=== PATIENT | male | born 1940 | race Caucasian/White ===

== ENCOUNTER 2020-02-12 16:01 | Inpatient (IN) ==
--- NOTE | 2020-02-12 16:24 | Emergency Department Note ---
SOB HPI General Chief Complaint: Shortness of Breath/Dyspnea Stated Complaint: shortness of breath Time Seen by Provider: 02/12/20 16:05 Source: patient Mode of arrival: wheelchair Limitations: no limitations History of Present Illness HPI Narrative: Narrative: This patient has a history of chronic renal failure though is not on dialysis. He has had a lot of trouble with fluid retention with started on Lasix and metolazone and lost 16 pounds with his potassium came down quite a bit. He then stopped the metolazone is gained another 6 pounds back. He actually went to [facility] ER yesterday and they wanted to admit him but he refused. I have spoken with Dr. Patrick who recommended he come to the ER here and consider admission. He has had no chest pain. No cough. He does feel slightly short of breath. Does wear compression stockings. Related Data Home Medications Medication Instructions Recorded Confirmed atorvastatin 20 mg PO HS 09/30/18 01/24/20 magnesium oxide 400 mg PO QDAY 01/01/20 01/24/20 pantoprazole 40 mg tablet,delayed 40 mg PO QDAY 01/01/20 01/24/20 release hydralazine 25 mg tablet 25 mg PO BID tab 01/10/20 01/24/20 warfarin 3 mg tablet 3 mg PO .as directed tab 01/10/20 01/24/20 isosorbide dinitrate 5 mg tablet 10 mg PO BID tab 01/14/20 01/24/20 menthol 0.44 %-zinc oxide 20.6 % 1 applic TOPICAL ONCE PRN g 01/14/20 01/24/20 topical ointment Previous Rx's Medication Instructions Recorded albuterol sulfate 90 mcg/actuation 2 puff INHALATION Q6H PRN #6.7 g 01/24/20 aerosol inhaler metolazone 2.5 mg tablet 2.5 mg PO Q OTHER DAY #60 tab 01/24/20 furosemide 20 mg tablet 40 mg PO BID #120 tab 01/28/20 potassium chloride 10 mEq 10 meq PO QDAY #30 tab 02/04/20 tablet,extended release Allergies Allergy/AdvReac Type Severity Reaction Status Date / Time No Known Drug Allergies Allergy Verified 02/12/20 16:03 Review of Systems ROS ROS Narrative: Narrative: PFSH Narrative Patient History Narrative: Narrative: Medical/Surgical/Family History All Active Problems (Updated 02/12/20 @ 20:48 by Channing Shin MD) Congestive heart failure (Acute) Alkalosis (Acute) Hypokalemia (Acute) 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 (Acute) CKD (chronic kidney disease), stage IV (Acute) Volume overload (Acute) Anemia (Acute) CKD (chronic kidney disease), stage III (Chronic) Shock (Chronic) Diabetes mellitus, type II (Acute) Vitamin deficiency (Chronic) Hypokalemia (Chronic) Insomnia (Chronic) Nonrheumatic aortic (valve) stenosis (Chronic) Cardiac arrhythmia (Chronic) Urinary retention (Chronic) Arthritis (Chronic) History of hip surgery (Chronic) History of pacemaker (Chronic ~2018) Syncopal episodes (Chronic) AV block (Chronic) Chronic atrial fibrillation (Chronic) Hyperlipidemia (Chronic) Weakness (Chronic) Fatigue (Chronic) Chronic cardiac disorder (Chronic) Noncompliance with medication regimen (Chronic) S/P CABG x 1 (Chronic) H/O aortic valve replacement (Chronic ~2013) Leukocytosis (Chronic) Lactic acidosis (Chronic) Sepsis (Chronic) HTN (hypertension) (Chronic) Leg edema, right (Chronic) Chronic kidney disease (Chronic) Cellulitis (Chronic) Septic shock (Chronic) Acute renal failure (Chronic) Hyperkalemia (Chronic) Medical History (Updated 02/12/20 @ 20:48 by Channing Shin MD) Arthritis (Chronic) AV block (Chronic) Cardiac arrhythmia (Chronic) Chronic atrial fibrillation (Chronic) Chronic cardiac disorder (Chronic) Chronic kidney disease (Chronic) Stage 4 Diabetes mellitus, type II (Acute) Fatigue (Chronic) History of pacemaker (Chronic ~2017) HTN (hypertension) (Chronic) Hyperlipidemia (Chronic) Hypokalemia (Chronic) Insomnia (Chronic) Lactic acidosis (Chronic) Leg edema, right (Chronic) Leukocytosis (Chronic) Noncompliance with medication regimen (Chronic) Nonrheumatic aortic (valve) stenosis (Chronic) Sepsis (Chronic) Shock (Chronic) Syncopal episodes (Chronic) Urinary retention (Chronic) Vitamin deficiency (Chronic) Weakness (Chronic) Surgical History (Updated 01/01/20 @ 14:57 by Bailey Oconnor) H/O aortic valve replacement (Chronic ~2013) History of hip surgery (Chronic) Right S/P CABG x 1 (Chronic) Family History (Updated 01/01/20 @ 14:55 by Bailey Oconnor) Father Heart disease, congenital Grandmother Heart disease, congenital Social History Smoking Status: Former smoker Alcohol Intake Frequency: a few times a month Substance Use: does not use Exam Narrative Narrative: Narrative: General Limitations: no limitations Head Head: atraumatic, normocephalic and normal inspection Eye Eye: Present normal appearance ENT ENT: Present normal exam Chest Chest: Present normal inspection and symmetric chest wall rise Respiratory Respiratory: Present normal lung sounds bilaterally; Absent respiratory distress, rales/crackles and wheezes Cardiovascular Cardiovascular: Present regular rate, normal rhythm and systolic murmur Adbominal Abdominal: Present soft; Absent distention and tenderness Extremities Extremities: Present pedal edema and pretibial edema Neurological Neurological: Present alert Psychiatric Psychiatric: Present normal affect Skin Skin: Present warm and dry; Absent diaphoresis Course Vital Signs Vital signs: Vital Signs Temperature 97.3 F 02/12/20 16:01 Pulse Rate 79 02/12/20 16:01 Respiratory Rate 16 02/12/20 16:01 Blood Pressure 153/71 02/12/20 16:01 Pulse Oximetry (%) 96 02/12/20 16:01 Temperature 97.3 F 02/12/20 16:01 Pulse Rate 89 02/12/20 20:46 Respiratory Rate 16 02/12/20 20:46 Blood Pressure 144/67 02/12/20 20:46 Pulse Oximetry (%) 93 02/12/20 20:46 [facility] Narrative Medical decision making narrative: Narrative: Patient's chest x-ray shows heart failure his BNP is elevated troponin was s lightly elevated at 0.13 and 0.14 on repeat EKG shows left bundle branch block or ventricular paced complex. We did give him Lasix 40 mg IV and he began to have a good diuresis. I discussed this case with Dr. Kuhn and he will be admitted to the hospital. Lab Data Lab results reviewed: Yes I reviewed the patient's lab results. Result diagrams: 02/12/20 16:24 02/12/20 16:24 Labs: Lab Results 02/12/20 02/12/20 02/12/20 Range/Units 16:24 16:24 16:24 WBC 6.4 (4.50-11.00) K/mcL RBC 3.58 L (4.63-6.08) M/mcL Hgb 9.7 L (13.7-17.5) g/dL Hct 31.5 L (40.1-51.0) % MCV 88.0 (80.0-100.0) fL MCH 27.1 (26.0-34.0) pg MCHC 30.8 L (31.0-36.0) g/dL RDW 16.2 H (11.5-14.5) % Plt Count 266 (140-440) K/mcL MPV 10.2 (7.4-10.4) fL Gran % 74.8 (38.0-78.0) % Lymph % (Auto) 10.2 L (15.5-49.0) % [place] % (Auto) 11.4 (1.0-12.0) % Eos % (Auto) 2.5 (0.0-7.0) % Baso % (Auto) 1.1 (0.0-2.0) % Gran # 4.79 (1.80-8.00) K/mcL Lymph # (Auto) 0.65 L (1.50-4.80) K/mcL [place] # (Auto) 0.73 (0.10-0.90) K/mcL Eos # (Auto) 0.16 (0.00-0.70) K/mcL Baso # (Auto) 0.07 (0.00-0.30) K/mcL PT (11.9-14.5) sec INR (0.9-1.1) VBG Lactic Acid 2.0 (0.5-2.0) mmol/L Sodium 142 (133-145) mmol/L Potassium 4.2 (3.3-5.1) mmol/L Chloride 96 (96-108) mmol/L Carbon Dioxide 31 H (22-30) mmol/L Anion Gap 15.0 (8-16) BUN 45 H (8-23) mg/dl Creatinine 2.1 H (0.7-1.2) mg/dl GFR Calculation 29 Glucose 105 (70-105) mg/dL Calcium 8.7 (8.6-10.4) mg/dl Total Bilirubin 1.1 H (0.0-1.0) mg/dL AST 35 (0-37) U/l ALT 12 (0-40) U/l Alkaline Phosphatase 122 H (39-117) U/L Troponin T (0-0.03) ng/ml NT-Pro-B Natriuret Pep 7274.0 H (0-450) pg/ml Total Protein 6.7 (5.9-8.4) gm/dL Albumin 3.2 (3.2-5.2) gm/dL Globulin 3.5 (2.2-3.7) gm/dL Albumin/Globulin Ratio 0.9 L (1.0-2.3) Urine Color Urine Appearance Urine pH (5.0-9.0) Ur Specific [place] (1.000-1.035) Urine Protein (NEG) mg/dL Urine Glucose (UA) (NEG) mg/dL Urine Ketones (NEG) mg/dL Urine Occult Blood (<0.03) mg/dL Urine Nitrate (NEG) Urine Bilirubin (NEG) mg/dL Urine Urobilinogen (NEG) mg/dL Ur Leukocyte Esterase (NEG) /uL Urine RBC (0-1) /hpf Urine WBC (0-4) /hpf Ur Squamous Epith Cells (0-4) /hpf Urine Bacteria (0) /hpf Hyaline Casts (0-2) /lpf Urine Mucus (0) /hpf Ur Culture Indicated? 02/12/20 02/12/20 02/12/20 Range/Units 16:24 16:24 17:09 WBC (4.50-11.00) K/mcL RBC (4.63-6.08) M/mcL Hgb (13.7-17.5) g/dL Hct (40.1-51.0) % MCV (80.0-100.0) fL MCH (26.0-34.0) pg MCHC (31.0-36.0) g/dL RDW (11.5-14.5) % Plt Count (140-440) K/mcL MPV (7.4-10.4) fL Gran % (38.0-78.0) % Lymph % (Auto) (15.5-49.0) % [place] % (Auto) (1.0-12.0) % Eos % (Auto) (0.0-7.0) % Baso % (Auto) (0.0-2.0) % Gran # (1.80-8.00) K/mcL Lymph # (Auto) (1.50-4.80) K/mcL [place] # (Auto) (0.10-0.90) K/mcL Eos # (Auto) (0.00-0.70) K/mcL Baso # (Auto) (0.00-0.30) K/mcL PT 22.9 H (11.9-14.5) sec INR 2.0 H (0.9-1.1) VBG Lactic Acid (0.5-2.0) mmol/L Sodium (133-145) mmol/L Potassium (3.3-5.1) mmol/L Chloride (96-108) mmol/L Carbon Dioxide (22-30) mmol/L Anion Gap (8-16) BUN (8-23) mg/dl Creatinine (0.7-1.2) mg/dl GFR Calculation Glucose (70-105) mg/dL Calcium (8.6-10.4) mg/dl Total Bilirubin (0.0-1.0) mg/dL AST (0-37) U/l ALT (0-40) U/l Alkaline Phosphatase (39-117) U/L Troponin T 0.13 H* (0-0.03) ng/ml NT-Pro-B Natriuret Pep (0-450) pg/ml Total Protein (5.9-8.4) gm/dL Albumin (3.2-5.2) gm/dL Globulin (2.2-3.7) gm/dL Albumin/Globulin Ratio (1.0-2.3) Urine Color Straw Urine Appearance Clear Urine pH 5.0 (5.0-9.0) Ur Specific [place] 1.008 (1.000-1.035) Urine Protein Neg (NEG) mg/dL Urine Glucose (UA) Negative (NEG) mg/dL Urine Ketones Neg (NEG) mg/dL Urine Occult Blood Neg (<0.03) mg/dL Urine Nitrate Neg (NEG) Urine Bilirubin Neg (NEG) mg/dL Urine Urobilinogen Neg (NEG) mg/dL Ur Leukocyte Esterase Neg (NEG) /uL Urine RBC 0 (0-1) /hpf Urine WBC < 1 (0-4) /hpf Ur Squamous Epith Cells < 1 (0-4) /hpf Urine Bacteria 0 (0) /hpf Hyaline Casts 3 H (0-2) /lpf Urine Mucus Few (0) /hpf Ur Culture Indicated? No 02/12/20 Range/Units 18:44 WBC (4.50-11.00) K/mcL RBC (4.63-6.08) M/mcL Hgb (13.7-17.5) g/dL Hct (40.1-51.0) % MCV (80.0-100.0) fL MCH (26.0-34.0) pg MCHC (31.0-36.0) g/dL RDW (11.5-14.5) % Plt Count (140-440) K/mcL MPV (7.4-10.4) fL Gran % (38.0-78.0) % Lymph % (Auto) (15.5-49.0) % [place] % (Auto) (1.0-12.0) % Eos % (Auto) (0.0-7.0) % Baso % (Auto) (0.0-2.0) % Gran # (1.80-8.00) K/mcL Lymph # (Auto) (1.50-4.80) K/mcL [place] # (Auto) (0.10-0.90) K/mcL Eos # (Auto) (0.00-0.70) K/mcL Baso # (Auto) (0.00-0.30) K/mcL PT (11.9-14.5) sec INR (0.9-1.1) VBG Lactic Acid (0.5-2.0) mmol/L Sodium (133-145) mmol/L Potassium (3.3-5.1) mmol/L Chloride (96-108) mmol/L Carbon Dioxide (22-30) mmol/L Anion Gap (8-16) BUN (8-23) mg/dl Creatinine (0.7-1.2) mg/dl GFR Calculation Glucose (70-105) mg/dL Calcium (8.6-10.4) mg/dl Total Bilirubin (0.0-1.0) mg/dL AST (0-37) U/l ALT (0-40) U/l Alkaline Phosphatase (39-117) U/L Troponin T 0.14 H* (0-0.03) ng/ml NT-Pro-B Natriuret Pep (0-450) pg/ml Total Protein (5.9-8.4) gm/dL Albumin (3.2-5.2) gm/dL Globulin (2.2-3.7) gm/dL Albumin/Globulin Ratio (1.0-2.3) Urine Color Urine Appearance Urine pH (5.0-9.0) Ur Specific [place] (1.000-1.035) Urine Protein (NEG) mg/dL Urine Glucose (UA) (NEG) mg/dL Urine Ketones (NEG) mg/dL Urine Occult Blood (<0.03) mg/dL Urine Nitrate (NEG) Urine Bilirubin (NEG) mg/dL Urine Urobilinogen (NEG) mg/dL Ur Leukocyte Esterase (NEG) /uL Urine RBC (0-1) /hpf Urine WBC (0-4) /hpf Ur Squamous Epith Cells (0-4) /hpf Urine Bacteria (0) /hpf Hyaline Casts (0-2) /lpf Urine Mucus (0) /hpf Ur Culture Indicated? Radiology Data Radiology results reviewed: Yes I reviewed the patient's radiology results. EKG Data EKG #1: EKG attestation: Yes I reviewed and interpreted this EKG. and Yes There are no EKG findings of acute coronary syndrome EKG results narrative: Paced complexes Discharge Plan Patient/Caregiver Discharge Instructions Pt seen by VICE PRESIDENT MEDIA RELATIONS/PA only: No Clinical Impression: Congestive heart failure Patient Disposition: Xfer As Inpt ([facility]) Follow up with: Roel Jaramillo MD [Primary Care Provider] - Prescriptions: No Action Calmoseptine 0.44-20.6 % ointment 1 applic TOPICAL ONCE PRN (Reason: Skin Irritation) RF: 0 isosorbide dinitrate 5 mg tablet 10 mg PO BID RF: 0 furosemide 20 mg tablet 40 mg PO BID Qty: 120 RF: 3 potassium chloride 10 mEq tablet extended release 10 meq PO QDAY Qty: 30 RF: 0 magnesium oxide 400 mg magnesium capsule 200 mg PO QDAY RF: 0 pantoprazole 40 mg tablet,delayed release (DR/EC) 40 mg PO QDAY RF: 0 hydralazine 25 mg tablet 25 mg PO BID RF: 0 metolazone 2.5 mg tablet 2.5 mg PO Q OTHER DAY Qty: 60 RF: 1 albuterol sulfate 90 mcg/actuation HFA aerosol inhaler 2 puff INHALATION Q6H PRN (Reason: shortness of breath or wheezing) Qty: 6.7 RF: 0 atorvastatin 20 MG tablet 20 mg PO HS RF: 0 warfarin 3 mg tablet 3 mg PO .as directed RF: 0
--- NOTE | 2020-02-12 16:40 | XRay Report ---
CLINICAL INFORMATION: edema COMPARISON: 09/30/2018 FINDINGS: The heart is moderately enlarged. Mitral annular calcification appreciated. Mediastinum is normal. Upper lobe pulmonary vessels slightly distended but there is no definite edema. Minor bibasilar atelectasis noted. Small bilateral pleural effusions developed IMPRESSION: Borderline CHF Interpreted and Authenticated by: Ryan Rodriguez 02/12/20
[2020-02-12 17:18] LABS: Basophils # (Auto) 0.07 K/mcL (0.00-0.30); Basophils % (Auto) 1.1 % (0.0-2.0); Eosinophils # (Auto) 0.16 K/mcL (0.00-0.70); Eosinophils % (Auto) 2.5 % (0.0-7.0); Granulocytes % (Auto) 74.8 % (38.0-78.0); Hematocrit 31.5 % (40.1-51.0); Hemoglobin 9.7 g/dL (13.7-17.5); Lymphocytes # (Auto) 0.65 K/mcL (1.50-4.80); Lymphocytes % (Auto) 10.2 % (15.5-49.0); Mean Corpuscular HGB Conc 30.8 g/dL (31.0-36.0); Mean Platelet Volume 10.2 fL (7.4-10.4); Monocytes # (Auto) 0.73 K/mcL (0.10-0.90); Monocytes % (Auto) 11.4 % (1.0-12.0); Platelet Count 266 K/mcL (140-440); RBC 3.58 M/mcL (4.63-6.08); Red Cell Distribution Width 16.2 % (11.5-14.5); WBC 6.4 K/mcL (4.50-11.00)
[2020-02-12 17:40] LABS: ALT/SGPT 12 U/l (0-40); AST/SGOT 35 U/l (0-37); Albumin 3.2 gm/dL (3.2-5.2); Albumin/Globulin Ratio 0.9 (1.0-2.3); Alkaline Phosphatase 122 U/L (39-117); Bilirubin,Total 1.1 mg/dL (0.0-1.0); Blood Urea Nitrogen 45 mg/dl (8-23); Calcium 8.7 mg/dl (8.6-10.4); Carbon Dioxide 31 mmol/L (22-30); Chloride 96 mmol/L (96-108); Globulin 3.5 gm/dL (2.2-3.7); Glomerular Filtration Rate 29; Glucose 105 mg/dL (70-105); Prothrombin Time 22.9 sec (11.9-14.5)
[2020-02-12] MEDS ORDERED: FUROSEMIDE 40 MG/4 ML VIAL IV ONE (17:59)
[2020-02-12 18:34] LABS: Appearance,Urine CLEAR; Bacteria,Urine 0 /hpf (0); Bilirubin,Urine NEG (NEG); Color,Urine STRAW; Culture Indicated,Urine NO; Glucose,Urine (UA) NEGATIVE (NEG); Ketones,Urine NEG (NEG); Leukocyte Esterase,Urine NEG /uL (NEG); Mucus,Urine FEW /hpf (0); Nitrate,Urine NEG (NEG); Protein,Urine NEG (NEG); Specific Gravity,Urine 1.008 (1.000-1.035); Urine Blood NEG mg/dL (<0.03); Urine Hyaline Cast 3 /lpf (0-2); Urine RBC 0 /hpf (0-1); Urine Squamous Epithelial Cell < 1 /hpf (0-4); Urine WBC < 1 /hpf (0-4); Urobilinogen,Urine NEG (NEG)
--- NOTE | 2020-02-12 20:54 | Internal Med History&Physical ---
HPI History of Present Illness Patient information: Note initiated : 02/12/20 at 8:54 pm Service Date, if different from initiated Date: [] Patient: Rosalino Hytlon a 79 y/o M admitted on for shortness of breath. Chief Complaint: Shortness of breath History of present illness: Mr. Hylton is a 79 year old M with a history of CKD TAVR/CAD/CABG status post pacemaker and RV systolic dysfunction presents to the ER with worsening shortness of breath/generalized weight gain. Patient recently started on Lasix/metolazone combo with adequate response relatively lost 14 pounds. However due to electrolyte abnormalities with low potassium metolazone was discontinued and he subsequently gained additional 6 pound weight along with increasing fatigue lethargy unable to function along with orthopnea. He notices lower extremity swelling worsening. He presents to [place] ER with above symptoms. Following initial evaluation he was recommended admission at [facility]. He however refused admission and went home only to get worse. He was now directed by patient's chair and couch maker today to [facility] ER. Initial work-up was consistent with CHF/profound lymphedema. Patient was started on diuretics. Subsequently hospital service was consulted. At the time of evaluation patient is alert. He is able to talk in near full sentences but short of breath. He is currently not on oxygen. Endorses to history as above. Denies NSAID intake. Denies changes in medication other than discontinuation of metolazone. He denies high salt diet. Review of systems 10 point review system was performed and is negative except for ones cussed above [facility] Medical History (Updated 02/12/20 @ 20:48 by Channing Shin MD) Arthritis (Chronic) AV block (Chronic) Cardiac arrhythmia (Chronic) Chronic atrial fibrillation (Chronic) Chronic cardiac disorder (Chronic) Chronic kidney disease (Chronic) Stage 4 Diabetes mellitus, type II (Acute) Fatigue (Chronic) History of pacemaker (Chronic ~2018) HTN (hypertension) (Chronic) Hyperlipidemia (Chronic) Hypokalemia (Chronic) Insomnia (Chronic) Lactic acidosis (Chronic) Leg edema, right (Chronic) Leukocytosis (Chronic) Noncompliance with medication regimen (Chronic) Nonrheumatic aortic (valve) stenosis (Chronic) Sepsis (Chronic) Shock (Chronic) Syncopal episodes (Chronic) Urinary retention (Chronic) Vitamin deficiency (Chronic) Weakness (Chronic) Surgical History (Updated 01/01/20 @ 14:57 by Bailey Oconnor) H/O aortic valve replacement (Chronic ~2013) History of hip surgery (Chronic) Right S/P CABG x 1 (Chronic) Family History (Updated 01/01/20 @ 14:55 by Bailey Oconnor) Father Heart disease, congenital Grandmother Heart disease, congenital Social History household members: family marital status: single smoking status: Never smoker alcohol intake frequency: a few times a month substance use type: does not use MEDS/ALLERGIES Home Medications and Allergies Home Medications Medication Instructions Recorded Confirmed Type atorvastatin 20 mg PO HS 09/30/18 02/12/20 History magnesium oxide 200 mg PO QDAY 01/01/20 02/12/20 History pantoprazole 40 mg tablet,delayed 40 mg PO QDAY 01/01/20 02/12/20 History release hydralazine 25 mg tablet 25 mg PO BID tab 01/10/20 02/12/20 History warfarin 3 mg tablet 3 mg PO .as directed tab 01/10/20 02/12/20 History isosorbide dinitrate 5 mg tablet 10 mg PO BID tab 01/14/20 02/12/20 History menthol 0.44 %-zinc oxide 20.6 % 1 applic TOPICAL ONCE PRN g 01/14/20 02/12/20 History topical ointment albuterol sulfate 90 mcg/actuation 2 puff INHALATION Q6H PRN #6.7 g 01/24/20 02/12/20 Rx aerosol inhaler metolazone 2.5 mg tablet 2.5 mg PO Q OTHER DAY #60 tab 01/24/20 02/12/20 Rx furosemide 20 mg tablet 40 mg PO BID #120 tab 01/28/20 02/12/20 Rx potassium chloride 10 mEq 10 meq PO QDAY #30 tab 02/04/20 02/12/20 Rx tablet,extended release Allergies Allergy/AdvReac Type Severity Reaction Status Date / Time No Known Drug Allergies Allergy Verified 02/12/20 16:03 EXAM Constitutional Vitals: Temp Pulse Resp BP Pulse Ox 97.3 F 89 16 144/67 93 02/12/20 16:01 02/12/20 20:46 02/12/20 20:46 02/12/20 20:46 02/12/20 20:46 Anxious and minimally labored breathing Head normocephalic Oral cavity moist No ear nose discharge Eye movement symmetrical Neck supple no lymphadenopathy Midline sternotomy incision scar. Pacemaker/paced rhythm on telemetry. Nondistended nontender abdomen Lower extremity diffuse lymphedema from ankle up to mid thigh Skin no suspicious lesion Psych anxious but alert cooperative Neuro normal higher function DATA Data Completed and Pending Labs on day of discharge: Labs from last 24 hours 02/12/20 02/12/20 02/12/20 18:44 17:09 16:24 WBC RBC Hgb Hct MCV MCH MCHC RDW Plt Count MPV Gran % Lymph % (Auto) [place] % (Auto) Eos % (Auto) Baso % (Auto) Gran # Lymph # (Auto) [place] # (Auto) Eos # (Auto) Baso # (Auto) PT 22.9 H INR 2.0 H VBG Lactic Acid Sodium Potassium Chloride Carbon Dioxide Anion Gap BUN Creatinine GFR Calculation Glucose Calcium Total Bilirubin AST ALT Alkaline Phosphatase Troponin T 0.14 H* NT-Pro-B Natriuret Pep Total Protein Albumin Globulin Albumin/Globulin Ratio Urine Color Straw Urine Appearance Clear Urine pH 5.0 Ur Specific [place] 1.008 Urine Protein Neg Urine Glucose (UA) Negative Urine Ketones Neg Urine Occult Blood Neg Urine Nitrate Neg Urine Bilirubin Neg Urine Urobilinogen Neg Ur Leukocyte Esterase Neg Urine RBC 0 Urine WBC < 1 Ur Squamous Epith Cells < 1 Urine Bacteria 0 Hyaline Casts 3 H Urine Mucus Few Ur Culture Indicated? No 02/12/20 02/12/20 02/12/20 16:24 16:24 16:24 WBC RBC Hgb Hct MCV MCH MCHC RDW Plt Count MPV Gran % Lymph % (Auto) [place] % (Auto) Eos % (Auto) Baso % (Auto) Gran # Lymph # (Auto) [place] # (Auto) Eos # (Auto) Baso # (Auto) PT INR VBG Lactic Acid 2.0 Sodium 142 Potassium 4.2 Chloride 96 Carbon Dioxide 31 H Anion Gap 15.0 BUN 45 H Creatinine 2.1 H GFR Calculation 29 Glucose 105 Calcium 8.7 Total Bilirubin 1.1 H AST 35 ALT 12 Alkaline Phosphatase 122 H Troponin T 0.13 H* NT-Pro-B Natriuret Pep 7274.0 H Total Protein 6.7 Albumin 3.2 Globulin 3.5 Albumin/Globulin Ratio 0.9 L Urine Color Urine Appearance Urine pH Ur Specific [place] Urine Protein Urine Glucose (UA) Urine Ketones Urine Occult Blood Urine Nitrate Urine Bilirubin Urine Urobilinogen Ur Leukocyte Esterase Urine RBC Urine WBC Ur Squamous Epith Cells Urine Bacteria Hyaline Casts Urine Mucus Ur Culture Indicated? 02/12/20 16:24 WBC 6.4 RBC 3.58 L Hgb 9.7 L Hct 31.5 L MCV 88.0 MCH 27.1 MCHC 30.8 L RDW 16.2 H Plt Count 266 MPV 10.2 Gran % 74.8 Lymph % (Auto) 10.[address] [place] % (Auto) 11.4 Eos % (Auto) 2.5 Baso % (Auto) 1.1 Gran # 4.79 Lymph # (Auto) 0.[address] [place] # (Auto) 0.73 Eos # (Auto) 0.16 Baso # (Auto) 0.07 PT INR VBG Lactic Acid Sodium Potassium Chloride Carbon Dioxide Anion Gap BUN Creatinine GFR Calculation Glucose Calcium Total Bilirubin AST ALT Alkaline Phosphatase Troponin T NT-Pro-B Natriuret Pep Total Protein Albumin Globulin Albumin/Globulin Ratio Urine Color Urine Appearance Urine pH Ur Specific [place] Urine Protein Urine Glucose (UA) Urine Ketones Urine Occult Blood Urine Nitrate Urine Bilirubin Urine Urobilinogen Ur Leukocyte Esterase Urine RBC Urine WBC Ur Squamous Epith Cells Urine Bacteria Hyaline Casts Urine Mucus Ur Culture Indicated? A/P Narrative A/P Narrative: * Acute decompensated heart failure-diastolic dysfunction with preserved LVEF as of echo reviewed from November 27. Continue diuretics/electrolyte management * Runs of V. tach-started on amiodarone drip * History of CAD/CABG on pacemaker continue isosorbide/statin * History of COPD continue bronchodilators * GERD continue PPI * Atrial fibrillation-rate controlled, paced rhythm * History of TAVR, reviewed echo 11/27 * Right heart systolic function/pulmonary hypertension * History of CKD stage IIIb, creatinine 2.1, follows up with nephrology * Anticoagulation Coumadin. INR therapeutic. * Full code * Prophylaxis anticoagulated on Coumadin Plan * Inpatient admission * Amiodarone drip * Diuresis * Electrolyte management * PT OT nutrition support Time Spent With Patient Time: Total time spent is greater than 50% in coordination of care (as documented) at patient's floor/unit and/or counseling patient: Total time spent with greater than 50% in coordination of care (as documented) at patient's floor/unit and/or counseling patient:: Greater than 35 minutes
[2020-02-12] MEDS ORDERED: DOCUSATE SODIUM 100 MG CAPSULE PO SCH (21:56)
[2020-02-12] MEDS ORDERED: ACETAMINOPHEN 325 MG TABLET PO PRN ×2 (21:56→23:03)
[2020-02-12] MEDS ORDERED: ATORVASTATIN 20 MG TABLET PO SCH (21:56)
[2020-02-12] MEDS ORDERED: METOLAZONE 2.5 MG TABLET PO SCH ×2 (21:56→23:03)
[2020-02-12] MEDS ORDERED: hydrALAZINE 25 MG TABLET PO SCH (21:56)
[2020-02-12] MEDS ORDERED: ONDANSETRON 4 MG/2 ML VIAL IV PRN ×2 (21:56→23:03)
[2020-02-12] MEDS ORDERED: BUDESONIDE 0.5 MG/2 ML AMPUL.NEB NEB SCH (21:56)
[2020-02-12] MEDS ORDERED: WARFARIN 3 MG TABLET PO SCH ×2 (21:56→23:03)
[2020-02-12] MEDS ORDERED: guaiFENesin/CODEINE 10 ML UDC PO PRN ×2 (21:56→23:03)
[2020-02-12] MEDS ORDERED: MAGNESIUM SULFATE 2 GM/50 ML BAG IV PRN ×2 (21:56→23:03)
[2020-02-12] MEDS ORDERED: BISACODYL 10 MG SUPP.RECT PR PRN ×2 (21:56→23:03)
[2020-02-12] MEDS ORDERED: ACETAMINOPHEN 650 MG/65 ML BOTTLE IV PRN ×2 (21:56→23:03)
[2020-02-12] MEDS ORDERED: ALBUTEROL SULFATE 200 PUFF INHALER INH PRN ×2 (21:56→23:03)
[2020-02-12] MEDS ORDERED: ONDANSETRON 4 MG ODT TABLET SL PRN ×2 (21:56→23:03)
[2020-02-12] MEDS ORDERED: POTASSIUM CHLORIDE 20 MEQ PACKET PO PRN ×2 (21:56→23:03)
[2020-02-12] MEDS ORDERED: SENNOSIDES/DOCUSATE SODIUM 1 TAB TABLET PO SCH (21:56)
[2020-02-12] MEDS ORDERED: ISOSORBIDE DINITRATE 10 MG PO SCH (21:56)
[2020-02-12] MEDS ORDERED: POLYETHYLENE GLYCOL 3350 17 GM PACKET PO PRN ×2 (21:56→23:03)
[2020-02-12] MEDS ORDERED: MELATONIN 3 MG TABLET PO PRN ×2 (21:56→23:03)
[2020-02-12] MEDS ORDERED: MENTHOL/ZINC OXIDE OINT.TOP 113 GM TOPICAL PRN ×2 (21:56→23:03)
[2020-02-12] MEDS ORDERED: METOPROLOL TARTRATE 5 MG/5 ML VIAL IV PRN ×2 (21:56→23:03)
[2020-02-12] MEDS ORDERED: 0.9 % SODIUM CHLORIDE 10 ML SYRINGE IV SCH (22:00)
[2020-02-12] MEDS: AMIODARONE 360 MG in PREMIX 1 BAG IV SCH ×2 (22:03→23:03)
[2020-02-12] MEDS ORDERED: AMIODARONE 150 MG/3 ML VIAL IV ONE (22:45)
[2020-02-12] MEDS ORDERED: AMIODARONE 360 MG/200 ML BAG IV ONE (22:46)
[2020-02-12] MEDS ORDERED: MAGNESIUM SULFATE 2 GM/50 ML BAG IV ONE (22:46)
[2020-02-12] MEDS ORDERED: IPRATROPIUM/ALBUTEROL 3 ML AMPUL.NEB NEB SCH (23:00)
[2020-02-12] MEDS ORDERED: AMIODARONE 150 MG in DEXTROSE 5% IN WATER 50 ML IV ONE (23:06)
[2020-02-13] MEDS: IPRATROPIUM/ALBUTEROL 3 ML AMPUL.NEB NEB SCH ×6 (04:26→23:02)
[2020-02-13] MEDS ORDERED: AMIODARONE 360 MG/200 ML BAG IV ONE (04:27)
[2020-02-13] MEDS: AMIODARONE 360 MG in PREMIX 1 BAG IV SCH (04:56)
[2020-02-13] MEDS ORDERED: AMIODARONE 360 MG in PREMIX 1 BAG IV SCH (05:00)
[2020-02-13] MEDS: 0.9 % SODIUM CHLORIDE 10 ML SYRINGE IV SCH ×3 (05:32→20:39)
[2020-02-13 06:10] LABS: Hematocrit 31.1 % (40.1-51.0); Hemoglobin 9.4 g/dL (13.7-17.5); Mean Cell Volume 88.9 fL (80.0-100.0); Mean Corpuscular HGB Conc 30.2 g/dL (31.0-36.0); Mean Platelet Volume 11.6 fL (7.4-10.4); Platelet Count 272 K/mcL (140-440); Red Cell Distribution Width 16.3 % (11.5-14.5); WBC 6.5 K/mcL (4.50-11.00)
[2020-02-13 06:32] LABS: ALT/SGPT 12 U/l (0-40); AST/SGOT 35 U/l (0-37); Albumin 3.2 gm/dL (3.2-5.2); Albumin/Globulin Ratio 0.9 (1.0-2.3); Alkaline Phosphatase 119 U/L (39-117); Bilirubin,Direct 0.4 mg/dL (0.0-0.3); Bilirubin,Total 0.9 mg/dL (0.0-1.0); Blood Urea Nitrogen 49 mg/dl (8-23); Calcium 8.7 mg/dl (8.6-10.4); Carbon Dioxide 32 mmol/L (22-30); Globulin 3.5 gm/dL (2.2-3.7); Glomerular Filtration Rate 29; Glucose 99 mg/dL (70-105); Lactate Dehydrogenase 478 U/L (94-250); Phosphorous 4.3 mg/dL (2.7-4.5); Triglycerides 72 mg/dl (<150); Uric Acid 15.7 mg/dL (2.5-8.0)
[2020-02-13 06:34] LABS: Chloride 94 mmol/L (96-108)
[2020-02-13] MEDS ORDERED: METOLAZONE 2.5 MG TABLET PO SCH (07:30)
[2020-02-13] MEDS: BUDESONIDE 0.5 MG/2 ML AMPUL.NEB NEB SCH ×2 (07:37→21:04)
[2020-02-13 07:48] LABS: Anisocytosis 2+ (NONE SEEN); Band Neutrophils % 7 % (0-10); Basophils % (Manual) 4 % (0-2); Eosinophils % (Manual) 2 % (0-7); Lymphocytes % 7 % (15-49); Monocytes % (Manual) 6 % (1-12); Ovalocytes FEW (NONE SEEN); Platelet Estimate NORMAL (NORMAL); Polychromasia OCC (NONE SEEN); RBC Morphology ABNORM (NORMAL); Reactive Lymphocytes 2 % (0-2); Segmented Neutrophils % 72 % (38-78)
[2020-02-13] MEDS: FUROSEMIDE 40 MG/4 ML VIAL IV SCH ×2 (07:49→16:13)
[2020-02-13] MEDS: PANTOPRAZOLE 40 MG TABLET PO SCH (07:49)
[2020-02-13] MEDS ORDERED: FUROSEMIDE 40 MG/4 ML VIAL IV SCH (08:00)
[2020-02-13 08:05] LABS: INR 1.9 (0.9-1.1); Prothrombin Time 22.7 sec (11.9-14.5)
[2020-02-13] MEDS: METOLAZONE 2.5 MG TABLET PO SCH ×2 (08:16→14:34)
[2020-02-13] MEDS ORDERED: POTASSIUM CHLORIDE 10 MEQ TABLET PO SCH (09:00)
[2020-02-13] MEDS ORDERED: PANTOPRAZOLE 40 MG TABLET PO SCH (09:00)
[2020-02-13] MEDS ORDERED: MAGNESIUM OXIDE 200 MG PO SCH (09:00)
[2020-02-13] MEDS: ISOSORBIDE DINITRATE 10 MG TABLET PO SCH ×2 (09:33→20:38)
[2020-02-13] MEDS: POTASSIUM CHLORIDE 10 MEQ TABLET PO SCH (09:33)
[2020-02-13] MEDS: hydrALAZINE 25 MG TABLET PO SCH ×2 (09:33→20:39)
[2020-02-13] MEDS: MAGNESIUM OXIDE 400 MG TABLET PO SCH (09:33)
[2020-02-13] MEDS: DOCUSATE SODIUM 100 MG CAPSULE PO SCH ×2 (09:34→20:38)
--- NOTE | 2020-02-13 11:37 | Internal Med Progress Note ---
SUBJECTIVE Subjective Patient information: Note initiated : 02/13/20 at 11:33 am Service Date, if different from initiated Date: [] Patient: Rosalino Hylton a 79 y/o M admitted on 02/12/20 for shortness of breath. Chief Complaint: [] History of present illness: Mr. Hylton is a 79 year old M with a history of CKD TAVR/CAD/CABG status post pacemaker and RV systolic dysfunction presents to the ER with worsening shortness of breath/generalized weight gain. Patient recently started on Lasix/metolazone combo with adequate response relatively lost 14 pounds. However due to electrolyte abnormalities with low potassium metolazone was discontinued and he subsequently gained additional 6 pound weight along with increasing fatigue lethargy unable to function along with orthopnea. He notices lower extremity swelling worsening. He presents to [place] ER with above symptoms. Following initial evaluation he was recommended admission at [facility]. He however refused admission and went home only to get worse. He was now directed by patient's diamond sizer and sorter today to [facility] ER. Initial w ork-up was consistent with CHF/profound lymphedema. Patient was started on diuretics. Subsequently hospital service was consulted. At the time of evaluation patient is alert. He is able to talk in near full sentences but short of breath. He is currently not on oxygen. Endorses to history as above. Denies NSAID intake. Denies changes in medication other than discontinuation of metolazone. He denies high salt diet. 02/12-no further episodes of V. tach post amiodarone load. Diuresing well. Over 1200 cc net negative fluid balance in 12 hours. Creatinine 2.1, repeat troponin level at 0.14. Recheck troponin. No episode of chest pain. Constitutional Vitals: Vital Signs Temp Pulse Resp BP Pulse Ox 97.6 F 91 H 16 127/62 92 02/13/20 08:02 02/13/20 11:00 02/13/20 09:00 02/13/20 11:00 02/13/20 11:00 Period Temp Pulse Resp BP Sys/Andino Pulse Ox Last 24 Hr 97.3 F-98.1 F 65-92 12-29 90-153/52-110 89-100 Intake and Output 02/12/20 02/13/20 02/13/20 21:59 05:59 13:59 Intake Total 963 256 Output Total 800 800 850 Balance -800 163 -594 Weight 97.296 kg Alert oriented No anxiety Nonlabored breathing Overnight episodes of V. tach ,telemetry paced rhythm Intake & Output: Intake & Output 02/12/20 02/13/20 02/13/20 21:59 05:59 13:59 Intake Total 963 256 Output Total 800 800 850 Balance -800 163 -594 Weight 97.296 kg Intake: IV 303 76 Cordarone 150 mg In Dextrose 5% 53 in Water 50 ml @ 300 mls/hr IV ONCE ONE Rx#:[id number] Nexterone 360 mg In Premix 1 200 76 Bag @ 0.5 MG/MIN 16.667 mls/hr IV .Q12H [facility] Rx#:[id number] Oral 240 180 GI Tube Flush 420 Output: Void Amount 800 800 850 Other: Meal Dinner Breakfast Percent of Meal Consumed 100% 100% Feeding Ability Assist with Tray Set Up Urine Appearance Clear Clear Urine Color Bright Yellow Bright Yellow Urine Odor Normal OBJ DATA Labs CBC & Chem 7: 02/13/20 05:08 02/13/20 05:08 Labs: Abnormal Lab Results 02/13/20 02/13/20 02/13/20 06:50 05:08 05:08 RBC 3.50 L Hgb 9.4 L Hct 31.1 L MCHC 30.2 L RDW 16.3 H MPV 11.6 H Lymph % (Auto) Lymph # (Auto) Lymphocytes % 7 L Basophils % (Manual) 4 H RBC Morphology Abnorm A Polychromasia Occ A Anisocytosis 2+ A Ovalocytes Few A PT 22.7 H INR 1.9 H Chloride 94 L Carbon Dioxide 32 H BUN 49 H Creatinine 2.1 H Uric Acid 15.7 H Total Bilirubin Direct Bilirubin 0.4 H Alkaline Phosphatase 119 H Lactate Dehydrogenase 478 H Troponin T NT-Pro-B Natriuret Pep Albumin/Globulin Ratio 0.9 L Hyaline Casts 02/12/20 02/12/20 02/12/20 18:44 17:09 16:24 RBC Hgb Hct MCHC RDW MPV Lymph % (Auto) Lymph # (Auto) Lymphocytes % Basophils % (Manual) RBC Morphology Polychromasia Anisocytosis Ovalocytes PT 22.9 H INR 2.0 H Chloride Carbon Dioxide BUN Creatinine Uric Acid Total Bilirubin Direct Bilirubin Alkaline Phosphatase Lactate Dehydrogenase Troponin T 0.14 H* NT-Pro-B Natriuret Pep Albumin/Globulin Ratio Hyaline Casts 3 H 02/12/20 02/12/20 02/12/20 16:24 16:24 16:24 RBC 3.58 L Hgb 9.7 L Hct 31.5 L MCHC 30.8 L RDW 16.2 H MPV Lymph % (Auto) 10.2 L Lymph # (Auto) 0.65 L Lymphocytes % Basophils % (Manual) RBC Morphology Polychromasia Anisocytosis Ovalocytes PT INR Chloride Carbon Dioxide 31 H BUN 45 H Creatinine 2.1 H Uric Acid Total Bilirubin 1.1 H Direct Bilirubin Alkaline Phosphatase 122 H Lactate Dehydrogenase Troponin T 0.13 H* NT-Pro-B Natriuret Pep 7274.0 H Albumin/Globulin Ratio 0.9 L Hyaline Casts Meds: Medications Acetaminophen (Tylenol) 650 mg PO Q4-6HP PRN; Protocol PRN Reason: Per Pain Protocol/Fever > 101 Albuterol Sulfate (Ventolin) 2 puff INH Q6HP PRN PRN Reason: shortness of breath or wheezin Albuterol/Ipratropium (Duoneb) 3 ml NEB Q4HRT [facility] Last Admin: 02/13/20 07:33 Dose: 3 ml Documented by: Atorvastatin Calcium (Lipitor) 20 mg PO HS [facility] Bisacodyl (Dulcolax) 10 mg KS Q2-3DAYS PRN PRN Reason: Constipation Budesonide (Pulmicort) 0.5 mg NEB Q12 [facility] Last Admin: 02/13/20 07:37 Dose: 0.5 mg Documented by: Calamine/Phenol (Calmoseptine) 1 dose TOPICAL ONCE PRN PRN Reason: Skin Irritation Docusate Sodium (Colace) 100 mg PO BID [facility] Last Admin: 02/13/20 09:34 Dose: Not Given Documented by: Furosemide (Lasix) 40 mg IV BIDD [facility] Last Admin: 02/13/20 07:49 Dose: 40 mg Documented by: Guaifenesin/Codeine Phosphate (Robitussin Ac) 10 ml PO Q4HP PRN PRN Reason: Cough Hydralazine HCl (Apresoline) 25 mg PO BID [facility] Last Admin: 02/13/20 09:33 Dose: 25 mg Documented by: Acetaminophen (Ofirmev) 650 mg in 65 mls @ 130 mls/hr IV Q6HP PRN; Protocol PRN Reason: Per Pain Protocol/Fever > 101 Magnesium Sulfate (Magnesium Sulfate) 2 gm in 50 mls @ 50 mls/hr IV UD PRN PRN Reason: MG = or < 1.7 Last Infusion: 02/13/20 01:22 Dose: Infused Documented by: Isosorbide Dinitrate (Isordil) 10 mg PO BID [facility] Last Admin: 02/13/20 09:33 Dose: 10 mg Documented by: Magnesium Oxide (Magnesium Oxide) 400 mg PO QDAY [facility] Last Admin: 02/13/20 09:33 Dose: 400 mg Documented by: Melatonin (Melatonin 3mg Tablet) 3 mg PO HSP PRN PRN Reason: Insomnia Metolazone (Zaroxolyn) 2.5 mg PO BID@0730,1530 [facility] Last Admin: 02/13/20 08:16 Dose: 2.5 mg Documented by: Metoprolol Tartrate (Lopressor) 5 mg IV Q5M PRN PRN Reason: Heart Rate > 140 bpm Ondansetron HCl (Zofran Odt) 4 mg SL Q4-6HP PRN; Protocol PRN Reason: Nausea And Vomiting Ondansetron HCl (Zofran) 4 mg IV Q4-6HP PRN; Protocol PRN Reason: Nausea And Vomiting Pantoprazole Sodium (Protonix) 40 mg PO ACB [facility] Last Admin: 02/13/20 07:49 Dose: 40 mg Documented by: Polyethylene Glycol (Miralax) 17 gm PO DAILYP PRN PRN Reason: Constipation Potassium Chloride (Kdur) 10 meq PO QDAY [facility] Last Admin: 02/13/20 09:33 Dose: 10 meq Documented by: Potassium Chloride (Klor-Con) 40 meq PO DAILYP PRN PRN Reason: K+ < 3.5 Senna/Docusate Sodium (Senna Plus Tablet) 1 tab PO HS [facility] Sodium Chloride (Saline Flush) 10 ml IV Q8 [facility] Last Admin: 02/13/20 05:32 Dose: 10 ml Documented by: Warfarin Sodium (Coumadin Per Pharmacy) 1 order PO DAILY@1400 [facility] Warfarin Sodium (Coumadin) 6 mg PO ONCE@1400 ONE Stop: 02/13/20 14:01 A/P Narrative A/P Narrative: * Acute decompensated heart failure-diastolic dysfunction with preserved LVEF as of echo reviewed from November 27. Improving with diuresis * Runs of V. tach-resolved with amiodarone load * History of CAD/CABG on pacemaker continue isosorbide/statin * History of COPD stable on bronchodilators * GERD continue PPI * Atrial fibrillation-rate controlled, paced rhythm * History of TAVR, reviewed echo 11/27, moderate leak * Right heart systolic dysfunction/pulmonary hypertension. At baseline * History of CKD stage IIIb, creatinine 2.1, follows up with nephrology * Anticoagulation Coumadin. INR therapeutic. * Full code * Prophylaxis anticoagulated on Coumadin Plan * Continue diuresis * DC amiodarone * Cardiac diet * Electrolyte management * PT OT nutrition support * Coumadin dosing based on INR Time Spent With Patient Time: Total time spent is greater than 50% in coordination of care (as documented) at patient's floor/unit and/or counseling patient:
[2020-02-13] MEDS ORDERED: WARFARIN 3 MG TABLET PO ONE (14:00)
[2020-02-13] MEDS ORDERED: SENNOSIDES/DOCUSATE SODIUM 1 TAB TABLET PO SCH (21:00)
[2020-02-13] MEDS ORDERED: ATORVASTATIN 20 MG TABLET PO SCH (21:00)
[2020-02-14] MEDS: IPRATROPIUM/ALBUTEROL 3 ML AMPUL.NEB NEB SCH ×3 (03:22→11:27)
[2020-02-14] MEDS: 0.9 % SODIUM CHLORIDE 10 ML SYRINGE IV SCH ×2 (05:18→08:34)
[2020-02-14 06:07] LABS: Hematocrit 29.8 % (40.1-51.0); Hemoglobin 9.1 g/dL (13.7-17.5); Mean Corpuscular HGB Conc 30.5 g/dL (31.0-36.0); Mean Platelet Volume 9.7 fL (7.4-10.4); Platelet Count 231 K/mcL (140-440); RBC 3.35 M/mcL (4.63-6.08); Red Cell Distribution Width 16.3 % (11.5-14.5)
[2020-02-14 06:23] LABS: INR 1.9 (0.9-1.1)
--- NOTE | 2020-02-14 06:30 | XRay Report ---
CLINICAL INFORMATION: CHF COMPARISON: 02/12/2020 FINDINGS: Moderate cardiomegaly is unchanged. Pacemaker leads in stable satisfactory position. Mediastinum is unremarkable. The pulmonary vessels have returned to normal in caliber. There is no interstitial edema. Mild bibasilar atelectasis again noted. Tiny bilateral pleural effusions. IMPRESSION: Interval resolution of CHF. Minor bibasilar atelectasis Interpreted and Authenticated by: Ryan Rodriguez 02/14/20
[2020-02-14 06:34] LABS: ALT/SGPT 10 U/l (0-40); AST/SGOT 33 U/l (0-37); Albumin 2.9 gm/dL (3.2-5.2); Albumin/Globulin Ratio 0.8 (1.0-2.3); Alkaline Phosphatase 114 U/L (39-117); Bilirubin,Total 0.7 mg/dL (0.0-1.0); Blood Urea Nitrogen 42 mg/dl (8-23); Calcium 8.7 mg/dl (8.6-10.4); Carbon Dioxide 33 mmol/L (22-30); Globulin 3.6 gm/dL (2.2-3.7); Glomerular Filtration Rate 29; Glucose 116 mg/dL (70-105); Lactate Dehydrogenase 461 U/L (94-250); Phosphorous 4.3 mg/dL (2.7-4.5); Triglycerides 62 mg/dl (<150); Uric Acid 15.7 mg/dL (2.5-8.0)
[2020-02-14 06:40] LABS: Bilirubin,Direct 0.3 mg/dL (0.0-0.3); Chloride 92 mmol/L (96-108)
[2020-02-14] MEDS: PANTOPRAZOLE 40 MG TABLET PO SCH (07:11)
[2020-02-14] MEDS: METOLAZONE 2.5 MG TABLET PO SCH (07:12)
[2020-02-14] MEDS: BUDESONIDE 0.5 MG/2 ML AMPUL.NEB NEB SCH (07:40)
[2020-02-14 07:42] LABS: Anisocytosis 1+ (NONE SEEN); Eosinophils % (Manual) 4 % (0-7); Hypochromasia 1+ (NONE SEEN); Lymphocytes % 10 % (15-49); Monocytes % (Manual) 3 % (1-12); Platelet Estimate NORMAL (NORMAL); RBC Fragments FEW (NONE SEEN); RBC Morphology ABNORM (NORMAL); Segmented Neutrophils % 83 % (38-78)
[2020-02-14] MEDS: FUROSEMIDE 40 MG/4 ML VIAL IV SCH (08:32)
--- NOTE | 2020-02-14 09:15 | Discharge Summary ---
Discharge Provider Provider Patient information: Note initiated : 02/14/20 at 9:11 am Service Date, if different from initiated Date: [] Patient: Rosalino Hylton a 79 y/o M admitted on 02/12/20 for shortness of breath. Discharge diagnosis * Acute decompensated heart failure-diastolic dysfunction with preserved LVEF as of echo reviewed from November 27. Clinically back at baseline with aggressive diuresis.. Continue Lasix metolazone combination. Follow-up closely with primary care physician/cardiology for optimization of CHF BMPs * Runs of V. tach-resolved following amiodarone administration. Now paced rhythm. Continue follow-up with cardiology as outpatient. * History of CAD/CABG on pacemaker continue isosorbide/statin * History of COPD stable on bronchodilators * GERD continue PPI * Atrial fibrillation-rate controlled, paced rhythm * History of TAVR, reviewed echo 11/27, moderate leak * Right heart systolic dysfunction/pulmonary hypertension. At baseline * History of CKD stage IIIb, creatinine 2.1, follows up with nephrology * Anticoagulation Coumadin. Continue outpatient Coumadin dosing/INR checks as prior Brief hospital course History of present illness: Mr. Hylton is a 79 year old M with a history of CKD TAVR/CAD/CABG status post pacemaker and RV systolic dysfunction presents to the ER with worsening shortness of breath/generalized weight gain. Patient recently started on Lasix/metolazone combo with adequate response relatively lost 14 pounds. However due to electrolyte abnormalities with low potassium metolazone was discontinued and he subsequently gained additional 6 pound weight along with increasing fatigue lethargy unable to function along with orthopnea. He notices lower extremity swelling worsening. He presents to [place] ER with above symptoms. Following initial evaluation he was recommended admission at [facility]. He however refused admission and went home only to get worse. He was now directed by patient's municipal firefighter today to [facility] ER. Initial work-up was consistent with CHF/profound lymphedema. Patient was started on diuretics. Subsequently hospital service was consulted. At the time of evaluation patient is alert. He is able to talk in near full sentences but short of breath. He is currently not on oxygen. Endorses to history as above. Denies NSAID intake. Denies changes in medication other than discontinuation of metolazone. He denies high salt diet. 02/12-no further episodes of V. tach post amiodarone load. Diuresing well. Over 1200 cc net negative fluid balance in 12 hours. Creatinine 2.1, repeat troponin level at 0.14. Recheck troponin. No episode of chest pain. 02/13-patient doing well. No overnight events. No concerns per staff. Diuresing adequately. Over 2000 cc net negative. Continue diuretic combination and follow-up with nephrology in 5 to 7 days. Feels at baseline and requesting discharge. Date of admission: 02/12/20 21:54 Primary care physician: Roel Jaramillo Consults: 02/12/20 Consult to Physician [CONS] Stat Comment: Consulting Provider: Joseph Mari Reason For Exam: Physician to Consult Discharge Meds Discharge Medications Home Medications atorvastatin 20 mg PO HS 09/30/18 [History Confirmed 02/12/20 Last Taken Unknown] magnesium oxide 200 mg PO QDAY 01/01/20 [History Confirmed 02/12/20 Last Taken Unknown] pantoprazole 40 mg tablet,delayed release 40 mg PO QDAY 01/01/20 [History Confirmed 02/12/20 Last Taken Unknown] hydralazine 25 mg tablet 25 mg PO BID tab 01/10/20 [History Confirmed 02/12/20 Last Taken Unknown] warfarin 3 mg tablet 3 mg PO .as directed tab 01/10/20 [History Confirmed 02/12/20 Last Taken Unknown] isosorbide dinitrate 5 mg tablet 10 mg PO BID tab 01/14/20 [History Confirmed 02/12/20 Last Taken Unknown] menthol 0.44 %-zinc oxide 20.6 % topical ointment 1 applic TOPICAL ONCE PRN g 01/14/20 [History Confirmed 02/12/20 Last Taken Unknown] albuterol sulfate 90 mcg/actuation aerosol inhaler 2 puff INHALATION Q6H PRN #6.7 g 01/24/20 [Rx Confirmed 02/12/20 Last Taken Unknown] furosemide 20 mg tablet 40 mg PO BID #120 tab 01/28/20 [Rx Confirmed 02/12/20 Last Taken Unknown] potassium chloride 10 mEq tablet,extended release 10 meq PO QDAY #30 tab 02/04/20 [Rx Confirmed 02/12/20 Last Taken Unknown] metolazone 2.5 mg PO DAILY #30 tab 02/14/20 [Rx Last Taken Unknown] COURSE Time Spent with Patient Time attestation: Total time spent providing and/or coordinating discharge services: EXAM Constitutional Vitals: Temp Pulse Resp BP Pulse Ox 98.7 F 72 18 129/66 93 02/14/20 08:01 02/14/20 07:44 02/14/20 07:44 02/14/20 08:01 02/14/20 08:01 Discharge Data Data Completed and Pending Labs on day of discharge: Labs from last 24 hours 02/14/20 02/14/20 02/14/20 05:15 05:15 05:11 WBC 6.0 RBC 3.35 L Hgb 9.1 L Hct 29.8 L MCV 89.0 MCH 27.2 MCHC 30.5 L RDW 16.3 H Plt Count 231 MPV 9.7 Total Counted 100 Seg Neutrophils % 83 H Band Neutrophils % Not Reportable Lymphocytes % 10 L Monocytes % (Manual) 3 Eosinophils % (Manual) 4 Platelet Estimate Normal RBC Morphology Abnorm A Hypochromasia 1+ A Anisocytosis 1+ A RBC Fragments Few A PT 22.0 H INR 1.9 H Sodium 139 Potassium 3.3 Chloride 92 L Carbon Dioxide 33 H Anion Gap 14.0 BUN 42 H Creatinine 2.1 H GFR Calculation 29 Glucose 116 H Uric Acid 15.7 H Calcium 8.7 Phosphorus 4.3 Magnesium 2.4 Total Bilirubin 0.7 Direct Bilirubin 0.3 GGT 48 AST 33 ALT 10 Alkaline Phosphatase 114 Lactate Dehydrogenase 461 H Troponin T Total Protein 6.5 Albumin 2.9 L Globulin 3.6 Albumin/Globulin Ratio 0.8 L Triglycerides 62 02/13/20 05:08 WBC RBC Hgb Hct MCV MCH MCHC RDW Plt Count MPV Total Counted Seg Neutrophils % Band Neutrophils % Lymphocytes % Monocytes % (Manual) Eosinophils % (Manual) Platelet Estimate RBC Morphology Hypochromasia Anisocytosis RBC Fragments PT INR Sodium Potassium Chloride Carbon Dioxide Anion Gap BUN Creatinine GFR Calculation Glucose Uric Acid Calcium Phosphorus Magnesium Total Bilirubin Direct Bilirubin GGT AST ALT Alkaline Phosphatase Lactate Dehydrogenase Troponin T 0.14 H* Total Protein Albumin Globulin Albumin/Globulin Ratio Triglycerides Discharge Plan Patient/Caregiver Discharge Instructions Activity: increase activity as tolerated Diet: Low Sodium (2gm) Activity Restrictions/Additional Instructions: Follow-up PCP in [5] days Follow-up with cardiology in 7 to 10 days Continue Coumadin dosing based on INR I recommend primary care physician to check CBC BMP UA as a posthospital follow- up in 1 week. Continue aggressive bowel regimen to prevent constipation Maintain fall precautions Daily weights measurements Take additional dose of diuretics for 3 days if weight gain over 4 pounds over baseline or worsening SOB and call primary care physician if inadequate response to diuretics. Continue directed therapies including PT OT on discharge as advised. ST eval and treatment if indicated High protein calorie supplements All meals on chair sitting upright at 90 degrees to prevent aspiration Return to ER if concerning symptoms noted including worsening shortness of breath, fever chills, neurological changes, diarrhea, bleeding Reviewed risk and side effect profile of medications including diuretics. Side effect may include mild to severe reaction including allergic reaction rash, electrolyte abnormalities including hypokalemia and in rare instances even which can be prevented by close follow-up with PCP and monitoring for side effects Continue cardiac diet and activity as advised Discussed importance of medication adherence Please review medication list with patient prior to discharge Please schedule follow-up with PCP/Providers prior to discharge and provide printouts Prescriptions: New metolazone 2.5 mg Tablet 2.5 mg PO DAILY Qty: 30 RF: 0 Continued Calmoseptine 0.44-20.6 % ointment 1 applic TOPICAL ONCE PRN (Reason: Skin Irritation) RF: 0 isosorbide dinitrate 5 mg tablet 10 mg PO BID RF: 0 furosemide 20 mg tablet 40 mg PO BID Qty: 120 RF: 3 potassium chloride 10 mEq tablet extended release 10 meq PO QDAY Qty: 30 RF: 0 magnesium oxide 400 mg magnesium capsule 200 mg PO QDAY RF: 0 pantoprazole 40 mg tablet,delayed release (DR/EC) 40 mg PO QDAY RF: 0 hydralazine 25 mg tablet 25 mg PO BID RF: 0 albuterol sulfate 90 mcg/actuation HFA aerosol inhaler 2 puff INHALATION Q6H PRN (Reason: shortness of breath or wheezing) Qty: 6.7 RF: 0 atorvastatin 20 MG tablet 20 mg PO HS RF: 0 warfarin 3 mg tablet 3 mg PO .as directed RF: 0 Discontinued metolazone 2.5 mg tablet 2.5 mg PO Q OTHER DAY Qty: 60 RF: 1 Follow Up Plan Follow up with: Roel Jaramillo MD [Primary Care Provider] - Patient Disposition: Home, Self-Care Rehab Potential: Fair I certify that the patient requires SNF services: No Overall status at discharge: patient is progressing back to baseline Discharge Orders: Discharge Order (Routine); Ordered 02/14/20 Ordered By: Joseph Mari
[2020-02-14] MEDS: MAGNESIUM OXIDE 400 MG TABLET PO SCH (09:19)
[2020-02-14] MEDS: POTASSIUM CHLORIDE 10 MEQ TABLET PO SCH (09:19)
[2020-02-14] MEDS: ISOSORBIDE DINITRATE 10 MG TABLET PO SCH (09:19)
[2020-02-14] MEDS: DOCUSATE SODIUM 100 MG CAPSULE PO SCH (09:19)
[2020-02-14] MEDS: hydrALAZINE 25 MG TABLET PO SCH (09:24)
[2020-02-14] MEDS ORDERED: WARFARIN 5 MG TABLET PO ONE (14:00)
== END 2020-02-14 12:05 | disposition home or self-care (01) | DRG 291 ==
LOC: ED 16:01 → ICU 21:54
PROVIDERS: ADMIT Internal Medicine; ATTEND Internal Medicine